=== PATIENT | male | born 1990 | race African-American/Black ===

== ENCOUNTER 2018-07-30 14:40 | Emergency (ER) | payer SELFPAY ==
[~2018-07-30] VITALS: Ht 177.8 cm; Wt 95.0 kg
[2018-07-31 02:57] VITALS: BP 101/61
== END 2018-07-31 02:59 | disposition home or self-care (01) ==
LOC: ER 17:25
DX: R07.89 Other chest pain (principal)
CPT/HCPCS: 71045; 99283